=== PATIENT | male | born 1980 | race Caucasian/White ===

== ENCOUNTER 2016-07-04 15:48 | Emergency (ER) | payer OTHER ==
[2016-07-04 16:09] LABS: URINE MICRO REVIEW NEEDED? NO; URINE SOURCE CLEAN CATCH
[2016-07-04 16:15] LABS: BILIRUBIN URINE NEGATIVE (NEGATIVE); BLOOD URINE LARGE (NEGATIVE); COLOR YELLOW; GLUCOSE URINE NEGATIVE (NEGATIVE); LEUKOCYTES URINE NEGATIVE (NEGATIVE); NITRITE URINE NEGATIVE (NEGATIVE); PH URINE 6.5; PROTEIN URINE 100 mg/dL (NEGATIVE); TURBIDITY URINE HAZY (CLEAR); UROBILINOGEN URINE NORMAL (NORMAL)
[2016-07-04 16:16] LABS: UR EPITHELIAL CELLS <10 /HPF (<10); URINE BACTERIA NEGATIVE /HPF; URINE CULTURE NEEDED? YES; URINE RBC TNTC /HPF (<10)
[2016-07-04 16:21] LABS: BASO% 0.4 % (0.0-0.8); EOS# 0.15 X1000 (0.0-0.7); EOS% 1.2 % (0.0-10.0); HEMATOCRIT 45.8 % (42.0-52.0); HEMOGLOBIN 17.1 g/dL (14.0-18.0); IMM GRAN# 0.04 X1000 (0.0-0.04); IMM GRAN% 0.3 % (0.0-0.5); LYMPH# 3.95 X1000 (1.2-3.4); LYMPH% 32.2 % (20.5-51.1); MANUAL DIFF NEEDED? NO; MCH 30.4 PG (27-31); MCHC 37.3 g/dL (33-37); MCV 81.5 FL (81-99); MONO# 0.92 X1000 (0.11-0.59); MONO% 7.5 % (1.7-9.3); MPV 10.4 FL (7.4-10.4); NEUT% 58.4 % (42.2-75.2); PLT 261 X1000 (130-400); RBC 5.62 XMIL (4.7-6.1)
--- NOTE | 2016-07-04 16:25 | PROVIDER DOCUMENTATION ---
HPI-Male Problem - General Source: patient - History of Present Illness-Male Location of Complaint: reports: left flank Radiation: reports: none Quality of Pain: reports: aching Severity in ED: reports: mild Onset/Duration: reports: 1 hour ago Timing: reports: gone now Context/Activities at Onset: reports: light activity Urinary Symptoms: reports: no symptoms Sexual intercourse history: reports: Not Active Contraception: reports: none Associated Symptoms: reports: none Associated Symptoms: reports: denies symptoms Similar Symptoms Previously?: Yes Recently seen or treated by another doctor?: No <Cathy Jackson - Last Filed: 07/04/16 16:20> <Rachel Faria - Last Filed: 07/04/16 17:22> - General Chief Complaint: Flank Pain Stated Complaint: POSS KIDNEY STONE Time Seen by Provider: 07/04/16 16:06 - History of Present Illness-Male Nature of Presenting Problem: Pt is 35 y/o M presents to the ED with L flank pain. Pt states hx of kidney stones. Pt denies F. Pt states back pain earlier today but has resolved now. Pt states pain is sharp. (Cathy Jackson) Review of Systems - Adult - REVIEW OF SYSTEMS - ADULT Constitutional: denies: chills, fever Eyes: denies: blurred vision, double vision Ears, Nose, Mouth & Throat: denies: ear pain, loose teeth, throat pain Cardiovascular: denies: chest pain, heart murmur, irregular heart rate Respiratory: denies: cough, shortness of breath, wheezing Gastrointestinal: denies: abdominal pain, diarrhea, frequent heartburn, nausea, vomiting Genitourinary: reports: flank pain (L). denies: dysuria, urgency Musculoskeletal: denies: bone pain, joint pain, neck pain Integumentary: denies: hives, itching Neurological: denies: dizziness/vertigo, headache/migraines Psychiatric: reports: no symptoms reported Endocrine: reports: no symptoms reported Hematologic/Lymphatic: reports: no symptoms reported Allergic/Immunologic: reports: no symptoms reported All Other Systems: Reviewed and Negative <Cathy Jackson - Last Filed: 07/04/16 16:20> Past History - Adult - PAST MEDICAL HISTORY-ADULT Review of Records: reports: Nursing Assessment Review, Medications Reviewed, Social history reviewed & non-contributory. Major Childhood Illnesses: reports: denies history Cardiovascular: reports: denies history Respiratory: reports: denies history Gastrointestinal: reports: denies history Obstetrical/Gynecological: reports: denies history Genitourinary: reports: denies history Musculoskeletal: reports: denies history Neurological: reports: denies history Endocrine/Immune: reports: denies history Other Conditions: reports: denies history - PRIOR SURGERIES/PROCEDURES Surgical/Procedure History: reports: reviewed, not pertinent - IMMUNIZATION STATUS Childhood Immunizations: See Nurse Assessment Flu Vaccine: See Nurse Assessment - FAMILY HISTORY Family History: reviewed, not pertinent - SOCIAL HISTORY Smoking: denies Substance Use: denies Living Situation: family <Cathy Jackson - Last Filed: 07/04/16 16:20> Physical Exam-General - PHYSICAL EXAM-ADULT Initial Vital Signs Reviewed: Yes - CONSTITUTIONAL General Appearance: appears well, alert, no apparent distress - EYES Eyes: PERRL/EOMI, pink conjunctivae, fundi clear, no AV nicking - HEAD, EARS, NOSE, MOUTH & THROAT HENMT: normocephalic/atraumatic, moist mucous membranes, normal ENT inspection, TMs normal, pharynx normal - NECK Neck: non-tender, full range of motion, supple, normal inspection - RESPIRATORY Respiratory: chest non-tender, lungs clear, normal breath sounds, no pleuratic chest pain, no respiratory distress, no accessory muscle use - CARDIOVASCULAR Cardiovascular: normal peripheral pulses, regular rate, rhythm, no edema, no gallop, no JVD, no murmur - GASTROINTESTINAL (ABDOMEN) Abdominal Exam: normal bowel sounds, non tender, soft, no organomegaly, no pulsatile mass - GENITOURINARY Male Genitalia: deferred Rectal Exam: deferred - LYMPHATIC Lymphatic: no adenopathy - MUSCULOSKELETAL Back Exam: normal inspection, no CVA tenderness, no vertebral tenderness Extremity: normal range of motion, non-tender, normal gait, normal inspection, no pedal edema, no calf tenderness, normal capillary refill, pelvis stable - SKIN Integumentary: normal color, normal turgor, warm/dry - NEUROLOGIC Neurologic: grossly normal - PSYCHIATRIC Psych/Mental Status: normal mood/affect, oriented x 3 <Cathy Jackson - Last Filed: 07/04/16 16:20> Progress <Cathy Jackson - Last Filed: 07/04/16 16:20> <Rachel Faria - Last Filed: 07/04/16 17:22> - PLAN OF CARE/RESULTS Progress/Plan/Lab Results: Discussed results and plan of care with patient. Patient agrees with plan and verbalizes understanding. Vital Signs Temp Pulse Resp BP Pulse Ox 07/04/16 15:52 97.4 F L 64 18 150/89 100 No Known Allergies Allergy (Verified 07/04/16 16:51) No Home Medications 07/04/16 Laboratory 07/04/16 07/04/16 07/04/16 16:03 16:03 16:03 WBC 12.28 H RBC 5.62 Hgb 17.1 Hct 45.8 MCV 81.5 MCH 30.4 MCHC 37.3 H RDW Std Deviation 12.6 Plt Count 261 MPV 10.4 Immature Gran % (Auto) 0.3 Neut % (Auto) 58.4 Lymph % (Auto) 32.2 Power % (Auto) 7.5 Eos % (Auto) 1.2 Baso % (Auto) 0.4 Immature Gran # (Auto) 0.04 Neut # (Auto) 7.17 H Lymph # (Auto) 3.95 H Power # (Auto) 0.92 H Eos # (Auto) 0.15 Baso # (Auto) 0.05 Sodium 139 Potassium 3.7 Chloride 101 Carbon Dioxide 22 L Anion Gap 16 BUN 16 Creatinine 1.0 Estimated GFR/1.73 m2 > 60 BUN/Creatinine Ratio 16 Glucose 99 Calculated Osmolality 279 Calcium 9.7 Total Bilirubin 0.77 AST 15 ALT 14 Alkaline Phosphatase 79 Total Protein 8.0 Albumin 4.7 Globulin 3.3 Albumin/Globulin Ratio 1.4 Urine Source CLEAN CATCH Urine Color YELLOW Urine Turbidity HAZY Urine pH 6.5 Ur Specific [place] 1.030 Urine Protein 100 A Ur Glucose (Stick) NEGATIVE Ur Ketones (Stick) NEGATIVE Urine Blood LARGE A Urine Nitrite NEGATIVE Urine Bilirubin NEGATIVE Urobilinogen Dipstick NORMAL Urine Leukocytes NEGATIVE Urine WBC (Auto) 10-20 A Urine RBC (Auto) TNTC A U Epithel Cells (Auto) <10 Urine Bacteria (Auto) NEGATIVE Orders Category Date Time Status CBC WITH ELECTRONIC DIFF [HEME] Stat Lab 07/04/16 16:03 Completed COMPREHENSIVE METABOLIC PANEL [CHEM] Stat Lab 07/04/16 16:03 Completed URINALYSIS W/POSS RFLX CULT [URINALYSIS] Stat Lab 07/04/16 16:03 Completed Laboratory Tests 07/04/16 07/04/16 07/04/16 16:03 16:03 16:03 WBC 12.28 H RBC 5.62 Hgb 17.1 Hct 45.8 MCV 81.5 MCH 30.4 MCHC 37.3 H RDW Std Deviation 12.6 Plt Count 261 MPV 10.4 Immature Gran % (Auto) 0.3 Neut % (Auto) 58.4 Lymph % (Auto) 32.2 Power % (Auto) 7.5 Eos % (Auto) 1.2 Baso % (Auto) 0.4 Immature Gran # (Auto) 0.04 Neut # (Auto) 7.17 H Lymph # (Auto) 3.95 H Power # (Auto) 0.92 H Eos # (Auto) 0.15 Baso # (Auto) 0.05 Sodium 139 Potassium 3.7 Chloride 101 Carbon Dioxide 22 L Anion Gap 16 BUN 16 Creatinine 1.0 Estimated GFR/1.73 m2 > 60 BUN/Creatinine Ratio 16 Glucose 99 Calculated Osmolality 279 Calcium 9.7 Total Bilirubin 0.77 AST 15 ALT 14 Alkaline Phosphatase 79 Total Protein 8.0 Albumin 4.7 Globulin 3.3 Albumin/Globulin Ratio 1.4 Urine Source CLEAN CATCH Urine Color YELLOW Urine Turbidity HAZY Urine pH 6.5 Ur Specific [place] 1.030 Urine Protein 100 A Ur Glucose (Stick) NEGATIVE Ur Ketones (Stick) NEGATIVE Urine Blood LARGE A Urine Nitrite NEGATIVE Urine Bilirubin NEGATIVE Urobilinogen Dipstick NORMAL Urine Leukocytes NEGATIVE Urine WBC (Auto) 10-20 A Urine RBC (Auto) TNTC A U Epithel Cells (Auto) <10 Urine Bacteria (Auto) NEGATIVE Pt. reports he has been pain free for 45 minutes and did not want to have the CT scan. (Rachel Faria) Departure <Cathy Jackson - Last Filed: 07/04/16 16:20> - Departure Time of Disposition Order: 17:17 Certified Medical Emergency: Emergent <Rachel Faria - Last Filed: 07/04/16 17:22> - Departure DIAGNOSIS: Acute flank pain Disposition: HOME 01 Condition: Stable Additional Instructions: Follow up with primary care physician Follow up with urologist Return to ED for any concerns or worsening of symptoms ED Follow Up Instructions: You have been treated by a care provider in the Emergency Department. These instructions are being provided to you so you can have an understanding of how to care for yourself upon discharge. Upon discharge from the Emergency Department, you are responsible for making arrangements for follow-up care by a physician of your choice. Take all prescribed medications as directed. Return to the Emergency Department immediately for any new or worsening symptoms. You may call the Physician Referral phone number at [phone] to obtain a list of Physicians who are taking new patients. Attestation - Scribe Verification/Attestation Scribe:: Cathy Jackson Acting as Scribe for:: Rachel Faria Scribe documention review:: This chart was documented by a scribe and accurately reflects the service the provider performed and the decisions made by the provider. <Cathy Jackson - Last Filed: 07/04/16 16:20> - Physician/ FISH Attestation Patient care was provided by Advanced Practice Provider:: Yes Advanced Practice Provider:: Rachel Faria Advanced Practice Provider documentation review:: The Mid-level provider documentation, treatment plan and medical decision making was reviewed by the physician who agrees with all treatment and medical decision making by the MLP. <Rachel Faria - Last Filed: 07/04/16 17:22> Physician Attestation - Physician Attestation I, the provider, attest to the following statement:: Rachel Faria Physician documentation Attestation:: This documentation recorded by the scribe accurately reflects the service I personally performed and the decisions made by me. <Rachel Faria - Last Filed: 07/04/16 17:22>
[2016-07-04 16:43] LABS: AGAP 16; ALBUMIN 4.7 g/dL (3.5-5.0); ALKALINE PHOSPHATASE 79 U/L (32-122); BUN 16 mg/dL (8-22); CALCIUM 9.7 mg/dL (8.8-10.2); CHLORIDE 101 mmol/L (98-107); COSMO 279; GOT 15 U/L (10-34); GPT 14 U/L (10-44); POTASSIUM 3.7 mmol/L (3.5-5.1); SODIUM 139 mmol/L (136-145); TCO2 22 mmol/L (25-35); TOTAL BILIRUBIN 0.77 mg/dL (0.20-1.00)
[2016-07-04 18:30] VITALS: BP 142/84
== END 2016-07-04 18:30 | disposition home or self-care (01) ==
LOC: ED 15:48
DX: R10.9 Unspecified abdominal pain (principal); M54.9 Dorsalgia, unspecified; Z87.442 Personal history of urinary calculi
CPT/HCPCS: 80053; 81001; 85025; 87088

== ENCOUNTER 2019-01-29 10:16 | Observation (INO) ==
[2019-01-29] MEDS ORDERED: ZOFRAN IV ONE (11:13)
[2019-01-29] MEDS ORDERED: TORADOL IV ONE (11:14)
[2019-01-29 11:24] LABS: URINE SOURCE CLEAN CATCH
[2019-01-29 11:36] LABS: BILIRUBIN URINE NEGATIVE (NEGATIVE); BLOOD URINE SMALL (NEGATIVE); COLOR YELLOW; GLUCOSE URINE NEGATIVE (NEGATIVE); KETONE URINE 40 mg/dL (NEGATIVE); LEUKOCYTES URINE NEGATIVE (NEGATIVE); NITRITE URINE NEGATIVE (NEGATIVE); PH URINE 7.5; PROTEIN URINE NEGATIVE (NEGATIVE); SP GRAVITY URINE 1.023; TURBIDITY URINE CLEAR (CLEAR); UR EPITHELIAL CELLS <10 /HPF (<10); URINE BACTERIA NEGATIVE /HPF; URINE RBC 20-40 /HPF (<10); URINE WBC <10 /HPF (<10); UROBILINOGEN URINE NORMAL (NORMAL)
[2019-01-29 11:48] LABS: CALCIUM 9.3 mg/dL (8.8-10.2); CREATININE 1.5 mg/dL (0.7-1.2); POTASSIUM 3.6 mmol/L (3.5-5.1)
[2019-01-29 12:01] LABS: BASO# 0.02 X1000 (0.0-0.2); BASO% 0.2 % (0.0-0.8); EOS# 0.11 X1000 (0.0-0.7); HEMATOCRIT 39.5 % (42.0-52.0); HEMOGLOBIN 14.6 g/dL (14.0-18.0); IMM GRAN# 0.03 X1000 (0.0-0.04); IMM GRAN% 0.3 % (0.0-0.5); LYMPH# 1.91 X1000 (1.2-3.4); LYMPH% 17.1 % (20.5-51.1); MCH 30.5 PG (27-31); MCV 82.5 FL (81-99); MONO# 1.21 X1000 (0.11-0.59); MONO% 10.8 % (1.7-9.3); MPV 10.9 FL (7.4-10.4); NEUT# 7.91 X1000 (1.4-6.5); NEUT% 70.6 % (42.2-75.2); PLT 173 X1000 (130-400); RBC 4.79 XMIL (4.7-6.1); RDW 13.1 % (11.5-14.5); WBC 11.19 X1000 (4.8-10.8)
--- NOTE | 2019-01-29 12:03 | Diag Imaging Result Doc PS360 ---
CT RENAL STONE SEARCH - 01/29/2019 INDICATION: R flank pain COMPARISON: None FINDINGS: The lung bases are clear and the heart size is normal. There is an obstructing stone at the right UVJ measuring 6.8 x 4.2 mm. There is moderate right hydroureteronephrosis. There is pronounced periureteral edema. There are at least four left and one right renal stones as well. These measure up to about 4 mm. No bowel obstruction or inflammation. Normal appendix. Urinary bladder, prostate, and rectum are normal. Bones are intact. IMPRESSION: Obstructing right UVJ stone with moderate hydroureteronephrosis. Bilateral renal stones. This exam was performed using automated exposure control, adjustment of mA or kV according to patient size, and/or use of iterative reconstruction technique Electronically signed by Pranav Rob 01/29/2019 12:00 PM
[2019-01-29 12:40] LABS: LYMPHS 22 % (21-51); MONO 4 % (1-9); SEGS 74 % (42-75)
[2019-01-29] MEDS ORDERED: DILAUDID IV PRN (13:00)
[2019-01-29] MEDS ORDERED: NS 500 ML IV ONE (13:04)
[2019-01-29] MEDS ORDERED: ZOFRAN IV PRN (13:09)
[2019-01-29] MEDS ORDERED: PHENERGAN IV PRN (13:09)
[2019-01-29] MEDS ORDERED: PERCOCET-5 PO PRN (13:09)
[2019-01-29] MEDS ORDERED: SODIUM CHLORIDE 0.9% INJ PRN (13:09)
--- NOTE | 2019-01-29 13:14 | PROVIDER DOCUMENTATION ---
This chart was entered by Kacey Matthews Scribe, acting as scribe for Gera Mcarthur MD. HPI-General Adult - General Chief Complaint: Flank Pain Stated Complaint: MALE Time Seen by Provider: 01/29/19 10:41 Source: patient, family () Allergies/Adverse Reactions: Patient Allergies Allergy/AdvReac Type Severity Reaction Status Date / Time No Known Allergies Allergy Verified 01/29/19 10:36 Home Medications: Home Medication List Medication Instructions Recorded Confirmed Last Taken Type Ondansetron Odt [Zofran 4 mg Odt] 4 mg PO Q6H PRN PRN #15 tab 01/27/19 01/29/19 01/29/19 09:00 Rx Oxycodone HCl/Acetaminophen 1 - 2 ea PO Q6-8H PRN PRN #15 tab 01/27/19 01/29/19 01/29/19 09:00 Rx [Percocet 5-325 mg Tablet] - History of Present Illness -Gen Adult Nature of Presenting Problems: 38 yowm presents to the ed with rt lumbar pain radiating into suprapubic, RLQ and st testicle and groin pain. pt was seen in ed on 01/27/19 for same complaint and has f/u with urology this coming saturday but has worsened. pt c/o n/v with pain. pt is restless on exam Location of Pain/Injury: reports: back Pain Radiation: reports: RLQ (and suprapubic), scrotal (and groin) Quality of Pain: reports: sharp Severity: reports: moderate Onset/Duration: reports: 4 days ago Timing: reports: still present, intermittent, getting worse Context/Activities at Onset: reports: light activity Modifying Factors: improves with: lying down. worse with: movement, palpation Associated Symptoms: reports: back/neck pain, genitourinary problems (testicular and groin pain), nausea, vomiting. denies: chest pain, cough, diarrhea, fever/chills, headaches, shortness of breath Similar Symptoms Previously?: Yes (hx of stones) Recently seen or treated by another doctor?: Yes (saw er dr gonzalez on 01/27/19) Review of Systems - Adult - REVIEW OF SYSTEMS - ADULT Constitutional: denies: chills, fever Eyes: reports: no symptoms reported Ears, Nose, Mouth & Throat: reports: no symptoms reported Cardiovascular: denies: chest pain, syncope Respiratory: denies: cough, shortness of breath, wheezing Gastrointestinal: reports: see HPI, abdominal pain (suprapubic), nausea, v omiting Genitourinary: reports: see HPI, other (groin and testicular pain rt sided) Musculoskeletal: reports: see HPI, back pain. denies: neck pain Integumentary: reports: no symptoms reported Neurological: denies: dizziness/vertigo, headache/migraines Psychiatric: reports: no symptoms reported Endocrine: reports: no symptoms reported Hematologic/Lymphatic: reports: no symptoms reported Allergic/Immunologic: reports: no symptoms reported All Other Systems: Reviewed and Negative Past History - Adult - PAST MEDICAL HISTORY-ADULT Review of Records: reports: Old Records Reviewed, Nursing Assessment Review, Medications Reviewed, Social history reviewed & non-contributory. Major Childhood Illnesses: reports: denies history Cardiovascular: reports: denies history Respiratory: reports: denies history Gastrointestinal: reports: denies history Genitourinary: reports: kidney stones Musculoskeletal: reports: denies history Neurological: reports: denies history Psychiatric: reports: denies history Endocrine/Immune: reports: denies history Other Conditions: reports: denies history - PRIOR SURGERIES/PROCEDURES Surgical/Procedure History: reports: reviewed, not pertinent - IMMUNIZATION STATUS Childhood Immunizations: See Nurse Assessment Flu Vaccine: See Nurse Assessment - FAMILY HISTORY Family History: reviewed, not pertinent - SOCIAL HISTORY Smoking: denies Substance Use: marijuana Living Situation: family Physical Exam-General - PHYSICAL EXAM-ADULT Initial Vital Signs Reviewed: Yes - CONSTITUTIONAL General Appearance: alert, mild distress - EYES Eyes: PERRL/EOMI, pink conjunctivae - HEAD, EARS, NOSE, MOUTH & THROAT HENMT: moist mucous membranes - NECK Neck: non-tender, full range of motion, supple, normal inspection - RESPIRATORY Respiratory: chest non-tender, lungs clear, normal breath sounds - CARDIOVASCULAR Cardiovascular: normal peripheral pulses, regular rate, rhythm - GASTROINTESTINAL (ABDOMEN) Abdominal Exam: normal bowel sounds, soft, tenderness (suprapubic and RLQ), other (nausea) - GENITOURINARY Male Genitalia: testicular tenderness (rt sided) Rectal Exam: deferred Hemoccult Exam: deferred - LYMPHATIC Lymphatic: no adenopathy - MUSCULOSKELETAL Back Exam: normal inspection, other (left lumbar pain) Extremity: normal range of motion, non-tender, normal gait, normal inspection - SKIN Integumentary: normal color, normal turgor, warm/dry - NEUROLOGIC Neurologic: grossly normal - PSYCHIATRIC Psych/Mental Status: normal mood/affect, normal thought content, normal thought process, oriented x 3 Progress - PLAN OF CARE/RESULTS Progress/Plan/Lab Results: Vital Signs - 8 hr 01/29/19 10:21 Temperature 97.4 F L Pulse Rate 68 Respiratory Rate 20 Blood Pressure 142/84 O2 Sat by Pulse Oximetry 100 Orders Category Date Time Status CT RENAL STONE SEARCH [CT] Stat Exams 01/29/19 11:12 Ordered BASIC METABOLIC PANEL [CHEM] Stat Lab 01/29/19 11:13 Uncollected CBC WITH DIFF [HEME] Stat Lab 01/29/19 11:13 Uncollected URINALYSIS W/POSS RFLX CULT [URINALYSIS] Stat Lab 01/29/19 11:13 Uncollected Ketorolac [Toradol] Med 01/29/19 11:14 Discontinued 30 mg IV NOW ONE Ondansetron [Zofran] Med 01/29/19 11:13 Discontinued 8 mg IV NOW ONE Result Diagrams: 01/29/19 11:03 01/29/19 11:03 - REASSESSMENT Reassessment #1 Time Reassessed: 12:06 Status: improving (pt pain has improved) - CT/MRI 1 CT Study: Kidneys Impression: See EMR Report (CT RENAL STONE SEARCH - 01/29/2019 INDICATION: R flank pain COMPARISON: None FINDINGS: The lung bases are clear and the heart size is normal. There is an obstructing stone at the right UVJ measuring 6.8 x 4.2 mm. There is moderate right hydroureteronephrosis. There is pronounced periureteral edema. There are at least four left and one right renal stones as well. These measure up to about 4 mm. No bowel obstruction or inflammation. Nor mal appendix. Urinary bladder, prostate, and rectum are normal. Bones are intact. IMPRESSION: Obstructing right UVJ stone with moderate hydroureteronephrosis. Bilateral renal stones. This exam was performed using automated exposure control, adjustment of mA or kV according to patient size, and/or use of iterative reconstruction technique Electronically signed by Pranav Rob 01/29/2019 12:00 PM 10/10/19 1200 Interpreting Physician: Pranav Rob MD Dictated Date/Time: 01/29/19 1159 cc: Gera Mcarthur MD; Danis Valiente MD) - CONSULTS/PCP/HOSPITALIST Notification #1 *Consult/PCP/Hospitalist*: dr esposito urology Time Discussed: 12:45 Reason/Comments: phone consult #2 Consult: dr esposito urology Time Discussed: 12:58 (will see this afternoon and wants admitted to hospitalist) #3 Consult: hospitalist Time Discussed: 13:02 (spoke with ritesh) Consult Disposition: Admit Departure - Departure Date of Disposition Decision: 01/29/19 Time of Disposition Decision: 13:13 DIAGNOSIS: Right ureteral calculus Disposition: ADMITTED INPATIENT 09 Certified Medical Emergency: Urgent Condition: Good Referrals and Follow-Ups: Danis Valiente MD [Primary Care Provider] - Attestation - Physician/ FISH Attestation Patient care was provided by Advanced Practice Provider:: No The physician spent face to face time with patient:: Yes Advanced Practice Provider documentation review:: Supervising physician onsite and consulted in the evaluation and care of this patient. The physician did have a face to face encounter with the patient. This chart was documented by the indicated scribe, (Kacey Matthews Scribe) and accurately reflects the services I performed and decisions made by me, Gera Mcarthur MD, as attested by the provider's signature.
--- NOTE | 2019-01-29 15:01 | HISTORY AND PHYSICAL ---
PRIMARY CARE PROVIDER: Dr. Valiente PRIMARY UROLOGIST: Dr. Cedeno CHIEF COMPLAINT: Right flank pain that radiates to the groin with nausea and vomiting. HISTORY OF PRESENT ILLNESS: Mr. Luis A Calderón is a 38-year-old male with a medical history of frequent bouts of kidney stones with the last being in 2017. He is followed by Dr. Cedeno for that. He also has been tested for a history of pseudocholinesterase deficiency as his mother had it. He states that on Saturday he started having right flank pain that would radiate all the way into the groin. Given his history of kidney stones and the urine having blood in it, he presented to the emergency department where he was not scanned but given Percocet and told to drink lots of fluids and to follow up with his outpatient urologist. He continued to have worsening pain, nausea, vomiting, darker colored urine now with blood clots and some small amounts of sediment that he has noticed that he has been passing. He absolutely got no sleep last night due to the severity of the pain and came back into the emergency department today where he was scanned and found to have an obstructing right UVJ stone that was 6.8 x 4.2 mm in measurement along with moderate hydroureteronephrosis. He does have bilateral renal stents. Dr. Canales was consulted by the ER physician who plans on coming this evening to see the patient for possible stone removal today versus tomorrow. He also admits to having a little bit of a low-grade temperature with it being as high as 99.8, essentially afebrile. The nausea and vomiting he states is from the severity of the pain that he was having. PAST MEDICAL HISTORY: 1. History of kidney stones with the last being in 2017. 2. Pseudocholinesterase deficiency. SURGICAL HISTORY: Nasal septal repair due to multiple nose fractures. SOCIAL HISTORY: He has smoked in the past but does not smoke now. He actually rarely will smoke a cigar. He drinks alcohol about once a month and smokes marijuana about once a week but not consistently. He is . is at the bedside. FAMILY HISTORY: He had an uncle that at 45 from an [place]. His mother had Graves disease and rheumatoid arthritis, and she also had pseudocholinesterase deficiency. ALLERGIES: No known drug allergies. HOME MEDICATIONS: Recently prescribed Zofran and Percocet for the right flank pain. REVIEW OF SYSTEMS: A 14-point review of systems is complete and all are negative except for those mentioned above in HPI. PHYSICAL EXAMINATION: VITAL SIGNS: Temperature 97.4; heart rate 68; respiratory rate 20; blood pressure 142/84; O2 saturation 100% on room air; 5 feet 10 inches tall; 195 pounds; BMI 28. GENERAL: Mr. Luis A Calderón is a 38-year-old male. He is in no acute distress at this time after receiving pain medication for relief. He is able to answer questions appropriately. No nausea or vomiting. HEENT: Atraumatic, normocephalic. PERRL. EOMI. Mucous membranes are dry. NECK: Trachea is midline. CARDIOVASCULAR: S1 and S2. Regular rate and rhythm. No rubs, gallops or murmurs. No lower extremity edema, +2 dorsalis and radial pulses. Negative JVD or carotid bruits. PULMONARY: Clear to auscultate. Bilateral breath sounds. No accessory muscle use or work of breathing noted. GASTROINTESTINAL: Soft, mild tenderness in the right flank area and in the mid abdominal area and epigastric region but positive bowel sounds x 4. EXTREMITIES: Moves all extremities equally. Full range of motion NEUROLOGIC: Alert and oriented x 3. Follows commands. Sensory is intact. SKIN: Warm, dry and intact. LABORATORY DATA: WBC 11,000, hemoglobin 14, hematocrit 39, platelet count 173,000. Sodium 138, potassium 3.6, BUN 15, creatinine 1.5, glucose 96, calcium 9.3. Urinalysis: 40 ketones, small blood, 20-40 red blood cells. IMAGING: Renal CT: There is an obstructing stone at the right UVJ measuring 6.8 x 4.2 mm with moderate right hydroureteronephrosis with pronounced periureteral edema. There are at least 4 more stones on the left and 1 more stone on the right that measure up to as high as 4 mm. Otherwise no other acute findings. ASSESSMENT AND PLAN: 1. Right UVJ stone measuring 6.8 x 4.2 mm causing significant pain. Dr. Canales has been consulted for possible removal. He will be given IV fluid hydration and Dilaudid for pain control. We will start Flomax tonight. He is already having sediment of stone that he has been able to urinate out over the last 72 hours. 2. Intractable nausea and vomiting. Starting to be relieved since his pain is become more relieved. He can have Zofran and Phenergan. 3. Acute kidney injury likely secondary to the stones and dehydration. Creatinine is 1.5. Again, he will be receiving IV fluid hydration. We will recheck creatinine in the morning. It is of note that he did have a dose of Toradol this admission in the ER. 4. DVT prophylaxis. SCDs. Dictated by KIAH Huerta for Jaylon Smith MD cc: KIAH Huerta agree with the above. the following is my own face to face assessment. patient without CVA tenderness but definitely appears uncomfortable. will treat kidney stone symptomatically with IVF, flomax. urology to see patient and will likely stent in the morning. DWIGHT
[2019-01-29] MEDS: NS 1,000 ML IV SCH (15:42)
[2019-01-29] MEDS ORDERED: XYLOCAINE-MPF 2% ONE (16:44)
[2019-01-29] MEDS ORDERED: DIPRIVAN 1% ONE (16:45)
[2019-01-29] MEDS ORDERED: KEFZOL 2 GM/D5W 2 GM/50 ML IVPB ONE (17:09)
[2019-01-29] MEDS ORDERED: ZOFRAN ONE (17:18)
[2019-01-29] MEDS ORDERED: DECADRON ONE (17:18)
[2019-01-29] MEDS ORDERED: ROBINUL ONE (17:20)
[2019-01-29] MEDS ORDERED: DILAUDID ONE (17:22)
--- NOTE | 2019-01-29 17:38 | CONSULTATION ---
DATE OF CONSULTATION: 01/29/2019 CHIEF COMPLAINT: Right flank pain. HISTORY OF PRESENT ILLNESS: Mr. Calderón is a 38-year-old with a history of kidney stones, most recently back in 2017. Patient previously was seen by Dr. Cedeno and presents to the emergency room complaining of flank pain. The patient presented to the emergency room on 01/27/2019 complaining of right flank pain. The patient had no imaging at that time but was treated for possible stone. The patient was discharged home with pain medication. However, his pain has persisted. The pain started on Saturday and it has progressively worsened. He is unable to tolerate p.o. intake and is vomiting profusely. The patient states that the pain is getting worse and he is having blood in his urine. He has been unable to sleep due to his pain. He had a CT scan today which showed an obstructing right ureterovesical junction stone measuring 6.8 x 4.2 cm with moderate hydronephrosis. Stone appears to be very close to the bladder. Urology is consulted for further recommendations. PAST MEDICAL HISTORY: 1. History of nephrolithiasis. 2. Pseudocholinesterase deficiency. PAST SURGICAL HISTORY: Nasal septal repair due to multiple fractures. MEDICATIONS: No home medications. ALLERGIES: No allergies. SOCIAL HISTORY: Patient occasionally drinks alcohol but denies tobacco or illicit drug use. FAMILY HISTORY: Denies family history of malignancy. REVIEW OF SYSTEMS: A 12 point review of systems was performed with all pertinent positives and negatives stated in the HPI. PHYSICAL EXAMINATION: Vital Signs: Temperature 97.4 degrees, heart rate 68, blood pressure 142/84. General: No acute distress. Resting comfortably in bed. Alert and oriented x3. HEENT: Normocephalic, atraumatic. Pupils equal, round, reactive to light. Neck: Trachea midline. No palpable masses. Respiratory: Good respiratory effort without audible wheezing or rales. Cardiovascular: Regular rate and rhythm. Abdomen: Soft, nontender, nondistended. : No suprapubic tenderness. Mild right CVA tenderness. Normal phallus. Palpated testicles, no palpable masses or asymmetry. Skin: No evidence of skin lesions or rashes. Neurologic: Gross motor and sensory intact. Musculoskeletal: Moving all extremities. LABS: White blood cell count 11.2, hemoglobin 14.6, hematocrit 39.5, platelets 173,000. Sodium 138, potassium 3.6, chloride 105, bicarb 20, BUN 15, creatinine 1.5, glucose 96. Urinalysis: Small amount of blood, less than 10 white blood cells, negative bacteria. IMAGING: CT of the abdomen and pelvis reviewed which shows a distal right ureteral stone measuring 6.8 x 4 mm present near the bladder with moderate right hydronephrosis. ASSESSMENT AND PLAN: The patient had a CT scan today which showed a right ureterovesical junction stone with associated moderate hydronephrosis and bilateral renal stones. The patient continues to have flank pain that radiates down to his right groin. The patient was uncomfortable in the emergency room. In talking with him, he would like to proceed with surgical intervention. Discussed proceeding with cystoscopy, right ureteroscopy, and laser lithotripsy, and stone basket extraction. Discussed the risks, benefits, and alternatives to the procedure. Discussed risk of bleeding, infection, damage to surrounding structures, need for secondary procedures, and need for stent postoperatively. After thorough discussion, patient elected to proceed. We will plan to perform this later today. Continue n.p.o. We will continue to monitor. Please call with questions or concerns. cc: Kd Canales MD MTDD
[2019-01-29] MEDS ORDERED: DEMEROL ONE (17:49)
[2019-01-29] MEDS ORDERED: PYRIDIUM PO PRN (18:09)
[2019-01-29] MEDS ORDERED: PYRIDIUM ONE (18:38)
[2019-01-29] MEDS ORDERED: NS 1,000 ML ONE (18:45)
--- NOTE | 2019-01-29 20:02 | OPERATIVE NOTE ---
PROCEDURE DATE: 01/29/2019 PREOPERATIVE DIAGNOSES: 1. Right ureteral stone. 2. Flank pain. 3. Bilateral renal stones. POSTOPERATIVE DIAGNOSES: 1. Right ureteral stone. 2. Flank pain. 3. Bilateral renal stones. PROCEDURE PERFORMED: 1. Cystoscopy. 2. Right ureteroscopy with lithotripsy. 3. Stone basket extraction. 4. Right ureteral stent placement. SURGEON: Kd Canales MD EDGERMAN: None. COMPLICATIONS: None. BLOOD LOSS: 2 mL SPECIMENS: Right ureteral stone. DRAINS: A 6 x 26 cm right ureteral stent. ANESTHESIA: LMA. INDICATIONS FOR PROCEDURE: Mr. Calderón is a 38-year-old who presented to the emergency room today complaining of right flank pain. The patient was seen in the ER earlier in the week with similar pain and had a CT scan, which showed a stone in the distal ureter. The patient continues to have pain with associated nausea and vomiting and says he cannot keep anything down. Imaging was reviewed, which showed an approximately 6 mm stone in the distal right ureter, near the vesicoureteral junction, with associated hydroureteronephrosis. The patient was evaluated in the emergency room this afternoon. In talking with him, he desired surgical intervention. I discussed risks, benefits and alternatives to the procedure including risk of bleeding, infection, damage to the ureter, urethra and bladder, need for secondary procedures, and inability to remove stone due to location. After thorough discussion, he elected to proceed. DESCRIPTION OF PROCEDURE: After informed consent was obtained, the patient was brought to the operating room and placed on the operating table in supine position. He received preoperative antibiotics, then underwent LMA placement. He was positioned in a dorsal lithotomy position and was prepped and draped in the usual sterile fashion. A preoperative time-out was performed with all parties in agreement, including anesthesia, surgical and nursing staff. At this point I inserted a 21-[place] cystourethroscope through the urethra and into the bladder. The patient had a normal urethra. No evidence any stricture disease or papillary lesions. Once in the posterior urethra, the patient's prostate was normal with no evidence of an obstruction. Once in the bladder, the entirety of the bladder was inspected. There were no diverticulum, cellules, papillary lesions or bladder stones. Health Insurance Sales Agent fluoroscopy was obtained which showed no stones that were visible. At this point I passed an open-ended catheter through the scope and then a ZIPwire was passed through the open-ended catheter in order to cannulate the right ureteral orifice, as the right ureteral orifice was slightly protuberant from stone posterior to it. No visible stone was seen on cystoscopy. The wire was able to be passed up and past the stone up into the collecting system and coiled there. The wire was left in place and the open-ended catheter and the cystourethroscope were completely removed. A semirigid ureteroscope was then advanced through the urethra and into the bladder. The right ureteral orifice was able to be cannulized and I advanced it up to the site of the stone. Using a 365 micron fiber, the stone was then fragmented into several small pieces. These were extracted using a Rewardpod basket, and dropped in the bladder for later retrieval. Several small stones were seen posterior to this, and each of these were removed for analysis. The ureteroscope was able to be advanced up into the proximal ureter, with no residual stone fragments. Pulling back the ureteroscope showed slight edema present at the prior stone impaction site. No other stone or stone debris was seen. The ureteroscope was then completely removed. The cystourethroscope was then back-loaded over the ZIPwire and a 6 x 26 cm stent was advanced over the wire and up into the kidney itself. Good coil was seen in the kidney, endoscopically visualized in the bladder. The patient's bladder was cycled multiple times and all the stone debris was removed and sent for analysis. Several knots were tied on the string, and the string was cut short for the patient's comfort. DISPOSITION: The patient will be admitted overnight, with hopeful plan to be discharged tomorrow. We will give the patient antibiotics, pain medication and medication for stent discomfort. The patient will remove the stent on Saturday and will return to clinic in 1 month for followup. cc: Kd Canales MD [facility]
[2019-01-29] MEDS ORDERED: FLOMAX PO SCH (21:00)
[2019-01-30] MEDS: NS 1,000 ML IV SCH (02:41)
[2019-01-30 07:24] LABS: BASO# 0.01 X1000 (0.0-0.2); BASO% 0.1 % (0.0-0.8); HEMATOCRIT 38.8 % (42.0-52.0); HEMOGLOBIN 13.9 g/dL (14.0-18.0); IMM GRAN# 0.02 X1000 (0.0-0.04); IMM GRAN% 0.2 % (0.0-0.5); LYMPH# 0.96 X1000 (1.2-3.4); LYMPH% 9.8 % (20.5-51.1); MCH 29.9 PG (27-31); MCHC 35.8 g/dL (33-37); MCV 83.4 FL (81-99); MONO# 0.38 X1000 (0.11-0.59); MONO% 3.9 % (1.7-9.3); MPV 10.7 FL (7.4-10.4); PLT 182 X1000 (130-400); RBC 4.65 XMIL (4.7-6.1); RDW 12.8 % (11.5-14.5); WBC 9.77 X1000 (4.8-10.8)
[2019-01-30 07:28] LABS: AGAP 9; ALB/GLOB RATIO 1.2; ALBUMIN 3.5 g/dL (3.5-5.0); ALKALINE PHOSPHATASE 64 U/L (32-122); BUN 14 mg/dL (8-22); CALCIUM 8.5 mg/dL (8.8-10.2); CHLORIDE 105 mmol/L (98-107); COSMO 275; ESTIMATED GFR > 60; GLUCOSE 117 mg/dL (70-104); GOT 11 U/L (10-34); GPT 12 U/L (10-44); MAGNESIUM 1.7 mg/dL (1.5-2.7); POTASSIUM 4.2 mmol/L (3.5-5.1); SODIUM 137 mmol/L (136-145); TCO2 23 mmol/L (25-35); TOTAL BILIRUBIN 0.62 mg/dL (0.20-1.00); TOTAL PROTEIN 6.5 g/dL (6.3-8.3)
[2019-01-30 07:31] LABS: INR 1.14; PROTIME 14.7 Seconds (11.0-16.0)
[2019-01-30 07:32] LABS: PTT 29.7 Seconds (22.3-41.8)
--- NOTE | 2019-01-30 07:42 | Diag Imaging Result Doc PS360 ---
FLUROSCOPY CYSTO - 01/29/2019 INDICATION: RT STONE REMOVAL STENT PLACEMENT TECHNIQUE: Fluoroscopy and multiple views of the abdomen. The exam was performed by the patient's urologist. Six images were obtained. COMPARISON: CT from 01/29/2019 FINDINGS: There was wire instrumentation of the right ureter and renal collecting system. A right nephroureteral stent was placed in good position. IMPRESSION: No complication. Electronically signed by Pranav Rob 01/30/2019 7:40 AM
--- NOTE | 2019-01-30 08:07 | PROGRESS NOTE ---
DATE: 01/30/2019 SUBJECTIVE: Postoperative day 1 from right ureteroscopy, lithotripsy and basket extraction of ureteral stone, right ureteral stent placement. The patient did well overnight. He says his pain is significantly improved. He has some burning with urination, but denies any flank or abdominal pain. The patient has been voiding without issue. OBJECTIVE: Vital signs: Temperature 98.6, heart rate 65, blood pressure 122/76, saturation 92% on room air. General: No acute distress. Resting comfortably in bed. Alert and oriented x3. Respiratory: Good respiratory effort. Abdomen: Soft, nontender, nondistended. : No suprapubic tenderness. No CVA tenderness. LABS: White blood cell count 9.7, hemoglobin 13.9, hematocrit 38.8, platelets 182. Sodium 137, potassium 4.2, chloride 105, bicarbonate 23. BUN 14, creatinine 1.0, glucose 117. ASSESSMENT AND PLAN: Mr. Calderón is a 38-year-old who is postoperative day 1 from right ureteroscopy, lithotripsy, stone basket extraction and right ureteral stent placement. The patient has done well. He said his pain is well controlled at this time. The patient is ready to be discharged. We will place discharge order. Previously written him prescriptions for pain medication, antibiotics, and medication for stent discomfort. Encouraged him to continue to take these. We will have him follow up in clinic in 1 month to review the stone analysis. The patient was educated on removal of stent. He will plan to do this on Saturday. If the patient has issues, then he will call the office to have our nurses remove it at that time. All his labs seem to have returned normal. Renal function is back to 1.0 from 1.5 yesterday. We will see the patient in follow-up. He can call the office if issues arise. cc: Kd Canales MD [facility]
[2019-01-30 08:08] VITALS: BP 145/74
[2019-01-30 09:17] LABS: BANDS 6 % (0-1); LYMPHS 12 % (21-51); MONO 2 % (1-9); SEGS 80 % (42-75)
--- NOTE | 2019-01-30 15:52 | DISCHARGE SUMMARY ---
ADMISSION DATE: 01/29/2019 DISCHARGE DATE: 01/30/2019 ADMISSION DIAGNOSIS: 1. Right UVJ stone measuring 6.8 x 4.2 mm causing significant pain. 2. Intractable nausea, vomiting. 3. Acute kidney injury likely secondary to the stones and dehydration. DISCHARGE DIAGNOSIS: 1. Right UVJ stone measuring 6.8 x 4.2 mm causing significant pain. Now status post cystoscopy right ureteroscopy with lithotripsy, stone basket extraction, and right ureteral stent placement. 2. Intractable nausea, vomiting, resolved. 3. Acute kidney injury secondary to stones and dehydration, had original creatinine 1.5, back down to 1.00 and resolved. CONSULTATIONS: Dr. Canales. SURGERIES/PROCEDURES: On the evening of 01/29/2019, the same day patient presented with complaints, he underwent cystoscopy, right ureteroscopy with lithotripsy, stone basket extraction, and right ureteral stent placement. The patient will remove the stent on Saturday and return to clinic in one month. HOSPITAL COURSE: Mr. Luis A Calderón is a 38-year-old male with a medical history of kidney stones. Prior to this admission, his last one was in 2017. He is usually followed up by Dr. Cdeeno. He presented with complaints that started since Saturday. Apparently he had come here on Saturday, was sent home with pain medication and to drink plenty of fluids to help pass the stone. There was never actually any imaging performed. He re-presented after having significant pain all through the night on the right in the right flank area and imaging revealed that he had a UVJ stone that was 6.8 x 4.2 mm. Also had some moderate hydroureteronephrosis, bilateral renal stents. Dr. Canales saw the patient, took him for stone extraction, cystoscopy, lithotripsy, and right ureteral stent placement. He received IV fluid hydration. He received antiemetics. The kidney function returned to normal the next day. He was given cefazolin, was given a dose of Decadron, is given p.r.n. Dilaudid, Percocet p.r.n., is given Pyridium, Phenergan if needed, and was started on a nighttime Flomax. DISCHARGE VITAL SIGNS: Temperature 98.1 degrees, heart rate 69, respiratory rate 17, blood pressure 145/74, O2 saturation 98% on room air. LABORATORY DATA: White blood cells 9000, hemoglobin 13, hematocrit 38, platelet count 182,000, INR is 1.14, PTT is 29.7. Sodium 137, potassium 4.2, BUN 14, creatinine is 1.0, glucose 117, calcium 8.5, magnesium 1.7, bilirubin 0.62, AST 11, ALT 12, albumin 3.5. Stone was sent for analysis. It is pending. No micro obtained. IMAGIN01/29/2019, had a renal CT showed obstructing right UVJ style with moderate hydroureteronephrosis and bilateral renal stones and then the fluoroscopy showed no complication. DISCHARGE DIET: Regular. ACTIVITY: As tolerated. No driving while taking pain medication. No heavy lifting. DISCHARGE MEDICATIONS: 1. Flomax 0.4 mg p.o. daily. 2. Levsin 0.125 mg p.o. every 8 hours p.r.n. 3. Macrobid 100 mg p.o. twice daily. 4. Oxycodone 5 mg p.o. every 6 hours p.r.n. 5. Pyridium 100 mg p.o. every 8 hours p.r.n. 6. Zofran 4 mg p.o. every 6 hours p.r.n. CONSULTATIONS: Dr. Canales on 03/02/[address] Danis Valiente. DISCHARGE INSTRUCTIONS: Notify MD for fever of 101 or above, foul smelling urine, pus in the urine, excessive blood in the urine, shortness of breath, chest pain, uncontrolled pain or nausea. Wound care for further instructions. Remove your stent on 02/02/2019. DISCHARGE DISPOSITION: Home. Dictated by KIAH Huerta for Jaylon Smith MD cc: KIAH Huerta obstructing stone addressed by urology. no CVA or abdominal tenderness on exam. stable for discharge home to follow up with urology and PCP. DWIGHT
== END 2019-01-30 08:57 | disposition home or self-care (01) ==
LOC: ED 10:16 → INTOOBSV 10:17 → EDIPHOLD 10:17 → 4N 18:06
PROVIDERS: ATTEND Internal Medicine